=== PATIENT | male | born 1970 | race Caucasian/White ===

== ENCOUNTER 2019-03-06 13:27 | Observation (INO) ==
[2019-03-06 14:03] LABS: Basophils # 0.1 K/mcL (0.0-0.2); Basophils % 0.3 %; Hematocrit 50.4 % (37.5-50.1); Hemoglobin 16.7 g/dL (12.9-16.9); Immature Granulocytes % 0.9 % (0-4); Lymphocytes # 1.4 K/mcL (0.6-4.6); Lymphocytes % 7.2 %; Mean Corpuscular HGB Conc 33.1 g/dL (31.6-35.5); Mean Corpuscular Volume 93.5 fL (83.0-100.0); Mean Platelet Volume 9.4 fL (9.4-12.4); Monocytes # 0.6 K/mcL (0.0-1.3); Neutrophils # 16.9 K/mcL (1.6-8.9); Platelet Count 384 K/mcL (140-400); Red Blood Count 5.39 M/mcL (4.19-5.50); Red Cell Distribution Width 11.6 % (11.5-14.5); Segmented Neutrophils % 88.6 %
[2019-03-06 14:11] LABS: VBG HCO3 10 mEq/L (21-27); VBG PCO2 24 mmHg (41-51); VBG PH 7.22 pH Units (7.32-7.42); VBG PO2 88 mmHg (25-50)
[2019-03-06] MEDS: 0.9 % Sodium Chloride 1,000 ML IVC SCH ×2 (14:20→15:16)
[2019-03-06 14:39] LABS: Alanine Aminotransferase 29 Units/L (7-52); Albumin 4.6 g/dL (3.5-5.7); Albumin/Globulin Ratio 1.5 (1.1-2.2); Alkaline Phosphatase 124 Units/L (34-104); Aspartate Amino Transferase 17 Units/L (13-39); BUN/Creatinine Ratio 19 (6-26); Bilirubin,Direct 0.1 mg/dL (0.0-0.2); Bilirubin,Indirect 0.4 mg/dL (0.0-1.2); Bilirubin,Total 0.5 mg/dL (0.3-1.0); Blood Urea Nitrogen 23 mg/dL (6-20); Calcium 9.7 mg/dL (8.6-10.3); Carbon Dioxide 8 mEq/L (23-29); Chloride 99 mEq/L (98-107); Globulin 3.1 g/dL (2.4-3.5); Glucose 461 mg/dL (70-105); Lipase 6 Units/L (11-82); Magnesium 2.1 mg/dL (1.6-2.6); Osmolality,Calculated 308 (280-300); Potassium 4.4 mEq/L (3.5-5.1); Sodium 137 mEq/L (136-145); Total Protein 7.7 g/dL (6.4-8.9); Troponin I 0.03 ng/mL (< 0.04); eGFR For Non-African Americans > 60 (> 60)
[2019-03-06] MEDS ORDERED: *HR* Dextrose 50 % in Water (Syg) 50 ML SYRINGE IVP PRN (14:40)
[2019-03-06] MEDS ORDERED: Insulin Human Regular 100 UNIT in 0.9 % Sodium Chloride 100 ML IVC SCH (14:45)
--- NOTE | 2019-03-06 15:06 | Emergency Department Note ---
Disposition Clinical Impression: Tachycardia DKA (diabetic ketoacidoses) Qualifiers: Diabetes mellitus type: type 2 Diabetes mellitus complication detail: without coma Qualified Code(s): E11.10 - Type 2 diabetes mellitus with ketoacidosis with out coma Leukocytosis Qualifiers: Leukocytosis type: unspecified Qualified Code(s): D72.829 - Elevated white blood cell count, unspecified Disposition: Admitted As Inpatient Condition: Fair Referrals: Sierra Maguire [facility] [Primary Care Provider] - Forms: ED Satisfaction Letter General Adult HPI - General Chief complaint: ED Dizziness Stated complaint: ABD,Dizziness,Vomiting Time Seen by Provider: 03/06/19 13:35 Source: patient Mode of arrival: ambulatory Limitations: no limitations Nursing Notes Reviewed: Yes Vital Signs Reviewed: Yes - History of Present Illness HPI Narrative: 48-year-old male with significant past medical history of poorly controlled diabetes presenting to the emergency part chief complaint of generalized abdo seven pain, nausea and vomiting. According to the patient yesterday he was not feeling well. Went to sleep and woke up this morning and had several episodes of nonbloody nonbilious vomiting. Patient states the symptoms are the exact same as his previous episode of DKA. He states he believes his sugars have been controlled at home but at bedside states that he does not check frequently and often does not take his medicine. Patient denies any chest pain or shortness of breath. Denies any fevers or recent illnesses. Pain Scale: 9 - Related Data Home Medications Medication Instructions Recorded Confirmed Insulin ASPART [NovoLOG] 0 unit SQ TIDWM 08/29/15 03/06/19 Insulin Glargine,Hum.rec.anlog 30 unit SQ BID 08/29/15 03/06/19 [Lantus Solostar] Allergies Allergy/AdvReac Type Severity Reaction Status Date / Time No Known Allergies Allergy Verified 03/06/19 13:33 All systems ED: reviewed and negative except as stated. Constitutional: Denies: fever Eyes: Reports: as per HPI ENT ED: Reports: as per HPI Cardiovascular: Denies: chest pain Respiratory: Denies: dyspnea Gastrointestinal: Reports: abdominal pain, nausea, vomiting Genitourinary: Reports: as per HPI Musculoskeletal: Reports: as per HPI Integumentary: Reports: as per HPI Neurological: Reports: weakness Psychiatric: Reports: as per HPI Endocrine: Reports: as per HPI Hematological/Lymphatic: Reports: as per HPI Allergic/Immunologic: Reports: as per HPI Past Medical History - Past Medical History Attestation: Yes The following information was validated with the patient. Medical history: Reports: arthritis, diabetes Surgical history: Reports: no surgical history Psychiatric history: Reports: no psych history - Social History Smoking Status: Current every day smoker Smokeless Tobacco Status: No Alcohol use: Reports: occasionally Drug use: Reports: none Physical Exam - General Limitations: no limitations General appearance: alert, in no apparent distress - Head Head exam: atraumatic, normocephalic, normal inspection - Eye Eye exam: Absent: scleral icterus - ENT ENT exam: mucous membranes dry - Neck Neck exam: Present: full ROM - Chest Chest inspection: Present: symmetric chest wall rise - Respiratory Respiratory exam: Present: normal lung sounds bilaterally. Absent: respiratory distress, wheezes - Cardiovascular Cardiovascular exam: Present: normal rhythm, tachycardia, normal heart sounds - Abdominal Exam Abdominal exam: Present: soft, Non-Tender. Absent: distention, guarding, rebound - Extremities Exam Extremities exam: Present: full ROM - Neurological Exam Neurological exam: Present: alert, oriented X3 - Psychiatric Psychiatric exam: Present: normal affect - Skin Skin exam: Present: warm, diaphoresis Course Course Narrative: 48-year-old male presenting with generalized abdominal pain, nausea and vomiting. He states this feels exactly like his previous episode of DKA. Patient is poorly controlled diabetic. In the room is alert and oriented 3. Tachycardic but hemodynamically stable. He has dry mucous membranes on exam. His abdomen is soft, nondistended on exam. Concern for DKA at this time. We will obtain basic laboratory analysis, VBG, EKG, chest x-ray and provide the patient with 2 L of fluid. Disposition most likely admission the pending results. Patient agrees with this plan. - Reevaluation(s) Reevaluation #1: Patient's laboratory analysis shows a pH of 7.22 and a gap of 30. Positive blood in urine ketones. At this time we will provide the patient with an insulin drip and add maintenance fluids with 20 mEq of potassium. Agent remains alert and oriented 3 and hemodynamically stable. At this time will plan to admit the patient for further evaluation and treatment of DKA. Patient agrees with this plan. I spoke with the hospitalist on-call who agrees to accept the patient at this time. Vital Signs Temperature 98.1 F 03/06/19 13:33 Pulse Rate 113 03/06/19 13:33 Respiratory Rate 20 03/06/19 13:33 Blood Pressure 113/71 03/06/19 13:33 O2 Sat by Pulse Oximetry 99 03/06/19 13:33 Temperature 98.1 F 03/06/19 13:40 Pulse Rate 106 03/06/19 14:21 Respiratory Rate 20 03/06/19 14:21 Blood Pressure 159/87 03/06/19 14:21 O2 Sat by Pulse Oximetry 99 03/06/19 14:21 Oxygen Delivery Oxygen Delivery Room Air Medical Decision Making - Lab Data Result diagrams: 03/06/19 13:51 03/06/19 13:51 Lab Results 03/06/19 03/06/19 03/06/19 Range/Units 13:51 13:51 13:51 WBC 19.0 H (4.3-11.1) K/mcL RBC 5.39 (4.19-5.50) M/mcL Hgb 16.7 (12.9-16.9) g/dL Hct 50.4 H (37.5-50.1) % MCV 93.5 (83.0-100.0) fL MCH 31.0 (28.0-33.3) pg MCHC 33.1 (31.6-35.5) g/dL RDW 11.6 (11.5-14.5) % Plt Count 384 (140-400) K/mcL MPV 9.4 (9.4-12.4) fL Immature Gran % 0.9 (0-4) % Seg Neutrophils % 88.6 % Lymphocytes % 7.2 % Monocytes % 3.0 % Eosinophils % 0.0 % Basophils % 0.3 % Neutrophils # 16.9 H (1.6-8.9) K/mcL Lymphocytes # 1.4 (0.6-4.6) K/mcL Monocytes # 0.6 (0.0-1.3) K/mcL Eosinophils # 0.0 (0.0-0.6) K/mcL Basophils # 0.1 (0.0-0.2) K/mcL VBG pH (7.32-7.42) pH Units VBG pCO2 (41-51) mmHg VBG pO2 (25-50) mmHg VBG HCO3 (21-27) mEq/L Sodium 137 (136-145) mEq/L Potassium 4.4 (3.5-5.1) mEq/L Chloride 99 (98-107) mEq/L Carbon Dioxide 8 L* (23-29) mEq/L BUN 23 H (6-20) mg/dL Creatinine 1.18 (0.70-1.30) mg/dL Est GFR ( Amer) > 60 (> 60) Est GFR (Non-Af Amer) > 60 (> 60) BUN/Creatinine Ratio 19 (6-26) Glucose 461 H (70-105) mg/dL Calculated Osmolality 308 H (280-300) Calcium 9.7 (8.6-10.3) mg/dL Magnesium 2.1 (1.6-2.6) mg/dL Total Bilirubin 0.5 (0.3-1.0) mg/dL Direct Bilirubin 0.1 (0.0-0.2) mg/dL Indirect Bilirubin 0.4 (0.0-1.2) mg/dL AST 17 (13-39) Units/L ALT 29 (7-52) Units/L Alkaline Phosphatase 124 H (34-104) Units/L Troponin I 0.03 (< 0.04) ng/mL Serum Total Protein 7.7 (6.4-8.9) g/dL Albumin 4.6 (3.5-5.7) g/dL Globulin 3.1 (2.4-3.5) g/dL Albumin/Globulin Ratio 1.5 (1.1-2.2) Lipase 6 L (11-82) Units/L Beta-Hydroxybutyric Acd > 2.00 H (0.02-0.27) mmol/L 03/06/19 Range/Units 14:08 WBC (4.3-11.1) K/mcL RBC (4.19-5.50) M/mcL Hgb (12.9-16.9) g/dL Hct (37.5-50.1) % MCV (83.0-100.0) fL MCH (28.0-33.3) pg MCHC (31.6-35.5) g/dL RDW (11.5-14.5) % Plt Count (140-400) K/mcL MPV (9.4-12.4) fL Immature Gran % (0-4) % Seg Neutrophils % % Lymphocytes % % Monocytes % % Eosinophils % % Basophils % % Neutrophils # (1.6-8.9) K/mcL Lymphocytes # (0.6-4.6) K/mcL Monocytes # (0.0-1.3) K/mcL Eosinophils # (0.0-0.6) K/mcL Basophils # (0.0-0.2) K/mcL VBG pH 7.22 L (7.32-7.42) pH Units VBG pCO2 24 L (41-51) mmHg VBG pO2 88 H (25-50) mmHg VBG HCO3 10 L (21-27) mEq/L Sodium (136-145) mEq/L Potassium (3.5-5.1) mEq/L Chloride (98-107) mEq/L Carbon Dioxide (23-29) mEq/L BUN (6-20) mg/dL Creatinine (0.70-1.30) mg/dL Est GFR ( Amer) (> 60) Est GFR (Non-Af Amer) (> 60) BUN/Creatinine Ratio (6-26) Glucose (70-105) mg/dL Calculated Osmolality (280-300) Calcium (8.6-10.3) mg/dL Magnesium (1.6-2.6) mg/dL Total Bilirubin (0.3-1.0) mg/dL Direct Bilirubin (0.0-0.2) mg/dL Indirect Bilirubin (0.0-1.2) mg/dL AST (13-39) Units/L ALT (7-52) Units/L Alkaline Phosphatase (34-104) Units/L Troponin I (< 0.04) ng/mL Serum Total Protein (6.4-8.9) g/dL Albumin (3.5-5.7) g/dL Globulin (2.4-3.5) g/dL Albumin/Globulin Ratio (1.1-2.2) Lipase (11-82) Units/L Beta-Hydroxybutyric Acd (0.02-0.27) mmol/L - EKG Data EKG #1 EKG attestation: Yes I reviewed and interpreted this EKG. EKG results narrative: Sinus tachycardia. 109 beats for minute. OR interval 170, QRS 83, QTC 493. No sign of acute ST segment elevation or ischemia. Compared to previous EKG completed on 08/29/2015 no significant changes noted
[2019-03-06] MEDS: 0.45 % Sodium Chloride w/KCl 20 MEQ/1,000 ML MLS IVC SCH ×5 (15:22→23:56)
[2019-03-06] MEDS ORDERED: 0.9 % Sodium Chloride 1,000 ML IVC ONE (15:25)
--- NOTE | 2019-03-06 15:31 | Emergency Department Note ---
Disposition Clinical Impression: Tachycardia DKA (diabetic ketoacidoses) Qualifiers: Diabetes mellitus type: type 2 Diabetes mellitus complication detail: without coma Qualified Code(s): E11.10 - Type 2 diabetes mellitus with ketoacidosis with out coma Leukocytosis Qualifiers: Leukocytosis type: unspecified Qualified Code(s): D72.829 - Elevated white blood cell count, unspecified Disposition: Admitted As Inpatient Condition: Fair Referrals: Sierra Maguire FSR [Primary Care Provider] - Forms: ED Satisfaction Letter General Adult HPI - General Chief complaint: ED Dizziness Stated complaint: ABD,Dizziness,Vomiting Time Seen by Provider: 03/06/19 13:35 Source: patient Mode of arrival: ambulatory Limitations: no limitations - History of Present Illness Pain Scale: 9 - Related Data Home Medications Medication Instructions Recorded Confirmed Insulin ASPART [NovoLOG] 0 unit SQ TIDWM 08/29/15 03/06/19 Insulin Glargine,Hum.rec.anlog 30 unit SQ BID 08/29/15 03/06/19 [Lantus Solostar] Allergies Allergy/AdvReac Type Severity Reaction Status Date / Time No Known Allergies Allergy Verified 03/06/19 13:33 Constitutional: Denies: fever Eyes: Reports: as per HPI ENT ED: Reports: as per HPI Cardiovascular: Denies: chest pain Respiratory: Denies: dyspnea Gastrointestinal: Reports: abdominal pain, nausea, vomiting Genitourinary: Reports: as per HPI Musculoskeletal: Reports: as per HPI Integumentary: Reports: as per HPI Neurological: Reports: weakness Psychiatric: Reports: as per HPI Endocrine: Reports: as per HPI Hematological/Lymphatic: Reports: as per HPI Allergic/Immunologic: Reports: as per HPI Past Medical History - Past Medical History Medical history: Reports: arthritis, diabetes Surgical history: Reports: no surgical history Psychiatric history: Reports: no psych history - Social History Smoking Status: Current every day smoker Smokeless Tobacco Status: No Alcohol use: Reports: occasionally Drug use: Reports: none Physical Exam - General Limitations: no limitations General appearance: alert, in no apparent distress Course Vital Signs Temperature 98.1 F 03/06/19 13:33 Pulse Rate 113 03/06/19 13:33 Respiratory Rate 20 03/06/19 13:33 Blood Pressure 113/71 03/06/19 13:33 O2 Sat by Pulse Oximetry 99 03/06/19 13:33 Temperature 98.1 F 03/06/19 13:40 Pulse Rate 106 03/06/19 14:21 Respiratory Rate 20 03/06/19 14:21 Blood Pressure 159/87 03/06/19 14:21 O2 Sat by Pulse Oximetry 99 03/06/19 14:21 Oxygen Delivery Oxygen Delivery Room Air Medical Decision Making - Lab Data Result diagrams: 03/06/19 13:51 03/06/19 13:51 Lab Results 03/06/19 03/06/19 03/06/19 Range/Units 13:51 13:51 13:51 WBC 19.0 H (4.3-11.1) K/mcL RBC 5.39 (4.19-5.50) M/mcL Hgb 16.7 (12.9-16.9) g/dL Hct 50.4 H (37.5-50.1) % MCV 93.5 (83.0-100.0) fL MCH 31.0 (28.0-33.3) pg MCHC 33.1 (31.6-35.5) g/dL RDW 11.6 (11.5-14.5) % Plt Count 384 (140-400) K/mcL MPV 9.4 (9.4-12.4) fL Immature Gran % 0.9 (0-4) % Seg Neutrophils % 88.6 % Lymphocytes % 7.2 % Monocytes % 3.0 % Eosinophils % 0.0 % Basophils % 0.3 % Neutrophils # 16.9 H (1.6-8.9) K/mcL Lymphocytes # 1.4 (0.6-4.6) K/mcL Monocytes # 0.6 (0.0-1.3) K/mcL Eosinophils # 0.0 (0.0-0.6) K/mcL Basophils # 0.1 (0.0-0.2) K/mcL VBG pH (7.32-7.42) pH Units VBG pCO2 (41-51) mmHg VBG pO2 (25-50) mmHg VBG HCO3 (21-27) mEq/L Sodium 137 (136-145) mEq/L Potassium 4.4 (3.5-5.1) mEq/L Chloride 99 (98-107) mEq/L Carbon Dioxide 8 L* (23-29) mEq/L BUN 23 H (6-20) mg/dL Creatinine 1.18 (0.70-1.30) mg/dL Est GFR ( Amer) > 60 (> 60) Est GFR (Non-Af Amer) > 60 (> 60) BUN/Creatinine Ratio 19 (6-26) Glucose 461 H (70-105) mg/dL Calculated Osmolality 308 H (280-300) Lactic Acid (0.5-2.2) mmol/L Calcium 9.7 (8.6-10.3) mg/dL Magnesium 2.1 (1.6-2.6) mg/dL Total Bilirubin 0.5 (0.3-1.0) mg/dL Direct Bilirubin 0.1 (0.0-0.2) mg/dL Indirect Bilirubin 0.4 (0.0-1.2) mg/dL AST 17 (13-39) Units/L ALT 29 (7-52) Units/L Alkaline Phosphatase 124 H (34-104) Units/L Troponin I 0.03 (< 0.04) ng/mL Serum Total Protein 7.7 (6.4-8.9) g/dL Albumin 4.6 (3.5-5.7) g/dL Globulin 3.1 (2.4-3.5) g/dL Albumin/Globulin Ratio 1.5 (1.1-2.2) Lipase 6 L (11-82) Units/L Beta-Hydroxybutyric Acd > 2.00 H (0.02-0.27) mmol/L 03/06/19 03/06/19 Range/Units 14:08 14:37 WBC (4.3-11.1) K/mcL RBC (4.19-5.50) M/mcL Hgb (12.9-16.9) g/dL Hct (37.5-50.1) % MCV (83.0-100.0) fL MCH (28.0-33.3) pg MCHC (31.6-35.5) g/dL RDW (11.5-14.5) % Plt Count (140-400) K/mcL MPV (9.4-12.4) fL Immature Gran % (0-4) % Seg Neutrophils % % Lymphocytes % % Monocytes % % Eosinophils % % Basophils % % Neutrophils # (1.6-8.9) K/mcL Lymphocytes # (0.6-4.6) K/mcL Monocytes # (0.0-1.3) K/mcL Eosinophils # (0.0-0.6) K/mcL Basophils # (0.0-0.2) K/mcL VBG pH 7.22 L (7.32-7.42) pH Units VBG pCO2 24 L (41-51) mmHg VBG pO2 88 H (25-50) mmHg VBG HCO3 10 L (21-27) mEq/L Sodium (136-145) mEq/L Potassium (3.5-5.1) mEq/L Chloride (98-107) mEq/L Carbon Dioxide (23-29) mEq/L BUN (6-20) mg/dL Creatinine (0.70-1.30) mg/dL Est GFR ( Amer) (> 60) Est GFR (Non-Af Amer) (> 60) BUN/Creatinine Ratio (6-26) Glucose (70-105) mg/dL Calculated Osmolality (280-300) Lactic Acid 2.2 (0.5-2.2) mmol/L Calcium (8.6-10.3) mg/dL Magnesium (1.6-2.6) mg/dL Total Bilirubin (0.3-1.0) mg/dL Direct Bilirubin (0.0-0.2) mg/dL Indirect Bilirubin (0.0-1.2) mg/dL AST (13-39) Units/L ALT (7-52) Units/L Alkaline Phosphatase (34-104) Units/L Troponin I (< 0.04) ng/mL Serum Total Protein (6.4-8.9) g/dL Albumin (3.5-5.7) g/dL Globulin (2.4-3.5) g/dL Albumin/Globulin Ratio (1.1-2.2) Lipase (11-82) Units/L Beta-Hydroxybutyric Acd (0.02-0.27) mmol/L Attestation Statement - Attestation Attestation: I examined this patient and my medical decision-making was reviewed with the Resident Physician. I agree with the documented findings, disposition and treatment plan as described except to the extent set forth below. 48 year old male presents with complaints of abdominal pain and vomitting and is otherwise a noncompliant diabetic patient and has been in DKA in the past. It appears he is in DKA again and torres start IVF, insulin and potassium therapy with admission to ICU
[2019-03-06] MEDS ORDERED: cefTRIAXone 1,000 MG in Water for inj. (sterile) 20 ML 10 ML IVP SCH (16:00)
[2019-03-06 16:27] LABS: Estimated Average Glucose 361 mg/dl; Hemoglobin A1C 14.2 %
[2019-03-06 16:33] LABS: BUN/Creatinine Ratio 21 (6-26); Blood Urea Nitrogen 22 mg/dL (6-20); Calcium 9.2 mg/dL (8.6-10.3); Carbon Dioxide 11 mEq/L (23-29); Chloride 107 mEq/L (98-107); Glucose 407 mg/dL (70-105); Osmolality,Calculated 302 (280-300); Potassium 4.4 mEq/L (3.5-5.1); Sodium 136 mEq/L (136-145); eGFR For Non-African Americans > 60 (> 60)
[2019-03-06 16:35] LABS: eGFR For Non-African Americans > 60 (> 60)
--- NOTE | 2019-03-06 16:48 | Internal Med History&Physical ---
Date of Encounter: 03/06/19 Time of Encounter: 16:42 Internal Medicine - H&P: HPI Chief complaint: abdominal pain, Nausea and vomiting Plans for Post Hospital Care: Home History of present illness: Mr. Barroso is a 48 year old male PMH of diabetes and medication non-compliance. Patient presented to the ED due to generalized abdominal pain, nausea and vomiting of 1 day duration. Patient reports not beiing compliant with his insulin regime for the past 2 days, reports that he has been skipping dosages and not using his slinding scale insulin for the past 2 days. Stated that yesterday he started having non-radiating generalized 8/10, aching abdominal pain, associated with nausea and 7-8 non-bilious, non-bloody vomiting episodes. He also reports having 4 loose BM yesterday. denies recent use of antibiotics. reports subjective fever yesterday. denies productive cough or urinary symptoms. Reports drinking 3-4 beers and day and smoking 1 ppd for the past 30 years. denies recreational drug use. Patient in the ED was found to be in dka, h ospitalist team called for management. Past Med Surg Social Fam HX - Past Medical History Medical history: arthritis, diabetes Additional medical history: see attached records Psychiatric history: no psych history - Past Surgical History Surgical History: no surgical history - Social History Smoking Status: Current every day smoker Smokeless Tobacco Status: No Alcohol use: occasionally Drug use: none - Family History Mother Adopted: No Family Member Ethnicity: Non- Living Status: Still Living Hx Family Cardiac Disorders: Yes Hx Family Respiratory Disorders: No Hx Family Cancer: No Hx Family GI Disorders: No Hx Family Endocrine Disorder: Yes Hx Family Neuromuscular Disorders: No Hx Family Neurologic Disorders: No Hx Family HEENT Disorders: No Hx Family Autoimmune Disorders: No Grandmother Hx Family Endocrine Disorder: Yes (Diabetes mellitus) Internal Medicine - H&P: Meds Insulin ASPART [NovoLOG] 0 unit SQ TIDWM 08/29/15 [History] Insulin Glargine,Hum.rec.anlog [Lantus Solostar] 30 unit SQ BID 08/29/15 [ History] Allergy/AdvReac Type Severity Reaction Status Date / Time No Known Allergies Allergy Verified 03/06/19 13:33 All Systems PM: A 10-system review of systems was performed and is negative for pertinent findings except as documented above in the HPI. - Constitutional Constitutional: fever(s) (subjective. ), no chills, no weakness - EENT Eyes: no blurry vision, no irritation, no pain Nose, mouth and throat: no dry mouth, no sinus pain, no throat swelling - Cardiovascular Cardiovascular ROS IM: no chest pain, no dyspnea, no dyspnea on exertion, no lightheadedness, no orthopnea, no palpitations - Respiratory Respiratory: no cough, no pain with cough - Gastrointestinal Gastrointestinal: abdominal pain, loose stools, nausea, vomiting, no cramping, no hematemesis, no hematochezia - Genitourinary Genitourinary ROS male: no difficulty urinating, no dysuria, no nocturia, no urinary frequency, no urinary hesitancy, no urinary urgency - Musculoskeletal Musculoskeletal ROS IM: no arthralgias, no myalgias, no numbness - Integumentary Integumentary IM: no erythema, no rash - Neurological Neurological ROS: no headache(s), no tingling, no weakness - Psychiatric Psychiatric: no anxiety, no hopelessness, no irritability - Endocrine Endocrine IM: no cold intolerance, no polydipsia, no polyphagia, no polyuria - Hematologic/Lymphatic Hematologic/Lymphatic: no easy bruising, no lymphadenopathy - Allergic/Immunologic Allergic/Immunologic: no GI upset with certain foods - Constitutional Vitals: Temp Pulse Resp BP Pulse Ox 98.1 F 107 18 176/93 99 03/06/19 13:40 03/06/19 16:18 03/06/19 16:18 03/06/19 16:18 03/06/19 16:18 Exam: Vitals: Reviewed General: Alert and oriented x4. In mild distress due to abdominal pain, nausea and vomiting Skin: Normal color, no rash, no lesions. HEENT: dry mucus membrane, EOM, pupils equal, round and reactive. Cardiovascular: RRR, normal S1 & S2, no rubs, murmurs or gallops. Lungs: CTA, no wheezes or crackles. Abdomen: Soft, non-tender, no rigidity. Extremities: No deformity, no edema or tenderness, no joint swelling or clubbing. Neurological: Normal cognition and motor skills. Rest of the physical exam is non contributory Internal Med - H&P Results - Labs CBC & Chem 7: 03/06/19 13:51 03/06/19 15:45 Labs: Short CBC 03/06/19 Range/Units 13:51 WBC 19.0 H (4.3-11.1) K/mcL Hgb 16.7 (12.9-16.9) g/dL Hct 50.4 H (37.5-50.1) % Plt Count 384 (140-400) K/mcL Neutrophils # 16.9 H (1.6-8.9) K/mcL BMP 03/06/19 03/06/19 13:51 15:45 Sodium 137 136 Potassium 4.4 4.4 Chloride 99 107 Carbon Dioxide 8 L* 11 L BUN 23 H 22 H Creatinine 1.18 1.05 Glucose 461 H 407 H Calcium 9.7 9.2 Cardiac Enzymes 03/06/19 03/06/19 Range/Units 13:51 15:45 Troponin I 0.03 < 0.03 (< 0.04) ng/mL Liver Function 03/06/19 Range/Units 13:51 Total Bilirubin 0.5 (0.3-1.0) mg/dL Direct Bilirubin 0.1 (0.0-0.2) mg/dL AST 17 (13-39) Units/L ALT 29 (7-52) Units/L Alkaline Phosphatase 124 H (34-104) Units/L Albumin 4.6 (3.5-5.7) g/dL - ABG Interpretation ABG results: 03/06/19 14:08 VBG pH 7.22 L VBG pCO2 24 L VBG pO2 88 H VBG HCO3 10 L - Impressions ITS Impressions Chest X-Ray 03/06/19 13:53 IMPRESSION: No acute cardiopulmonary disease. D/ / Eric Guillermo MD / Eric Guillermo MD Interpreting Provider: Eric Guillermo MD - Diagnostic Studies Chest x-ray Status: image reviewed by me (No abdonormalities. ) - Assessment and Plan (1) DKA (diabetic ketoacidoses) Current Visit: Yes Status: Acute Assessment and plan: patient reports being not compliant with his medications. 1 day hx of nausea, vomiting and abdominal pain. Plan started DKA protocol BMP Q4HRs, accu-checks Q1HRs NPO insulin drip titrate per protocol IV fluids bolus. patient has received 3 litters of fluids total continue 0.45% with 20 meq of K @125ml/hr change fluids to D5/0.45%NS when blood sugar <250 lactic acid patient started empirically on ceftriaxone 1gm/IV daily serial trops PPIs and anti-emetics lipase. Qualifiers: Diabetes mellitus type: type 2 Diabetes mellitus complication detail: without coma Qualified Code(s): E11.10 - Type 2 diabetes mellitus with ketoacidosis without coma (2) Nausea and vomiting Current Visit: Yes Status: Acute Assessment and plan: plan of care as per #1 Qualifiers: Vomiting type: unspecified Vomiting Intractability: intractable Qualified Code(s): R11.2 - Nausea with vomiting, unspecified (3) Abdominal pain Current Visit: Yes Status: Acute Assessment and plan: plan of care as per #1 Qualifiers: Abdominal location: generalized Qualified Code(s): R10.84 - Generalized abdominal pain (4) Leukocytosis Current Visit: Yes Status: Acute Assessment and plan: likely reactive. due to nausea and vomiting. Qualifiers: Leukocytosis type: unspecified Qualified Code(s): D72.829 - Elevated white blood cell count, unspecified (5) DVT prophylaxis Current Visit: Yes Status: Acute Assessment and plan: started on heparin subq. - Time Spent With Patient Total time spent is greater than 50% in coordination of care (as documented) at patient's floor/unit and/or counseling patient: Greater than 35 minutes (45)
[2019-03-06] MEDS: Ondansetron 4 MG/2 ML VIAL IVP PRN ×2 (17:12→23:32)
[2019-03-06] MEDS: D5% in 0.45% NACL w KCl 20 MEQ/1,000 ML MLS IVC PRN ×2 (19:45→23:30)
[2019-03-06] MEDS: Pantoprazole 40 MG VIAL IVP SCH (20:50)
[2019-03-06 21:04] LABS: BUN/Creatinine Ratio 23 (6-26); Blood Urea Nitrogen 19 mg/dL (6-20); Calcium 8.4 mg/dL (8.6-10.3); Carbon Dioxide 13 mEq/L (23-29); Chloride 110 mEq/L (98-107); Glucose 229 mg/dL (70-105); Osmolality,Calculated 294 (280-300); Potassium 4.3 mEq/L (3.5-5.1); Sodium 137 mEq/L (136-145)
[2019-03-06] MEDS: *HR* Heparin 5,000 UNIT/ML VIAL SQ SCH (23:30)
[2019-03-07] MEDS: 0.45 % Sodium Chloride w/KCl 20 MEQ/1,000 ML MLS IVC SCH (01:44)
[2019-03-07 01:52] LABS: BUN/Creatinine Ratio 26 (6-26); Blood Urea Nitrogen 18 mg/dL (6-20); Carbon Dioxide 19 mEq/L (23-29); Chloride 110 mEq/L (98-107); Glucose 189 mg/dL (70-105); Osmolality,Calculated 291 (280-300); Potassium 3.8 mEq/L (3.5-5.1); Sodium 137 mEq/L (136-145); eGFR For Non-African Americans > 60 (> 60)
[2019-03-07] MEDS ORDERED: D5% in Water 1,000 ML IVC PRN (02:24)
[2019-03-07] MEDS ORDERED: Dextrose Gel 15 GM/37.5 ML TUBE PO PRN ×2 (02:24)
[2019-03-07] MEDS ORDERED: *HR* Dextrose 50 % in Water (Syg) 50 ML SYRINGE IVP PRN (02:24)
[2019-03-07] MEDS ORDERED: Insulin DETEMIR 100 UNIT/ML X5UNITS SQ ONE (02:27)
[2019-03-07] MEDS: *HR* Heparin 5,000 UNIT/ML VIAL SQ SCH (06:38)
[2019-03-07] MEDS: Insulin LISPRO 300 UNITS/3 ML VIAL SQ SCH ×2 (07:45→11:49)
[2019-03-07 08:01] LABS: BUN/Creatinine Ratio 25 (6-26); Blood Urea Nitrogen 15 mg/dL (6-20); Calcium 8.9 mg/dL (8.6-10.3); Carbon Dioxide 21 mEq/L (23-29); Chloride 109 mEq/L (98-107); Glucose 110 mg/dL (70-105); Osmolality,Calculated 283 (280-300); Potassium 3.5 mEq/L (3.5-5.1); Sodium 136 mEq/L (136-145); eGFR For Non-African Americans > 60 (> 60)
[2019-03-07] MEDS: Pantoprazole 40 MG VIAL IVP SCH (08:14)
[2019-03-07 10:32] LABS: Hematocrit 39.9 % (37.5-50.1); Mean Corpuscular HGB Conc 33.8 g/dL (31.6-35.5); Mean Corpuscular Hemoglobin 30.4 pg (28.0-33.3); Mean Corpuscular Volume 89.9 fL (83.0-100.0); Mean Platelet Volume 9.2 fL (9.4-12.4); Platelet Count 284 K/mcL (140-400); Red Blood Count 4.44 M/mcL (4.19-5.50); Red Cell Distribution Width 11.5 % (11.5-14.5)
[2019-03-07 10:35] LABS: Hemoglobin 13.5 g/dL (12.9-16.9)
[2019-03-07 11:03] VITALS: BP 151/77
--- NOTE | 2019-03-07 11:03 | Discharge Summary ---
- NOTES TO OUTPATIENT PROVIDER Notes to Outpatient Provider: CBC in 5 days Date of Encounter: 03/07/19 Time of Encounter: 07:30 - Discharge Diagnosis (1) DKA (diabetic ketoacidoses) Priority: Primary Status: Acute Qualifiers: Diabetes mellitus type: type 2 Diabetes mellitus complication detail: without coma Qualified Code(s): E11.10 - Type 2 diabetes mellitus with ketoacidosis without coma (2) Leukocytosis Priority: Secondary Status: Acute Qualifiers: Leukocytosis type: unspecified Qualified Code(s): D72.829 - Elevated white blood cell count, unspecified (3) Nausea and vomiting Priority: Secondary Status: Acute Qualifiers: Vomiting type: unspecified Vomiting Intractability: intractable Qualified Code(s): R11.2 - Nausea with vomiting, unspecified (4) Abdominal pain Priority: Secondary Status: Acute Qualifiers: Abdominal location: generalized Qualified Code(s): R10.84 - Generalized abdominal pain (5) DVT prophylaxis Priority: Secondary Status: Acute Hospital course: Mr. Barroso is a 48 year old male with history of type 2 diabetes was admitted for mild DKA in the setting of noncompliance. Clinically improved with IV insulin, IV fluid with closure of anion gap. He was noted to have leukocytosis without any foci of infection and was advised to follow-up with repeat CBC in 5 days. He stated that he had all the insulin supplies at home hence the script was not provided. Discharge discussed with: patient, nurse - Time Spent with Patient Total time spent providing and/or coordinating discharge services: 28 mins - Discharge Medications Prescriptions: Continued Insulin ASPART [NovoLOG] 0 unit SQ TIDWM Insulin Glargine,Hum.rec.anlog [Lantus Solostar] 30 unit SQ BID Home Medications: Insulin ASPART [NovoLOG] 0 unit SQ TIDWM 08/29/15 [History] Insulin Glargine,Hum.rec.anlog [Lantus Solostar] 30 unit SQ BID 08/29/15 [History] Allergies/Adverse Reactions: Allergy/AdvReac Type Severity Reaction Status Date / Time No Known Allergies Allergy Verified 03/06/19 13:33 Date of admission: 03/06/19 18:14 Primary care physician: Sierra Maguire CNP - Constitutional Vitals: Temp Pulse Resp BP Pulse Ox 98.3 F 94 18 162/89 97 03/07/19 07:22 03/07/19 07:22 03/07/19 07:22 03/07/19 07:22 03/07/19 08:14 Exam: Vitals: Reviewed General: Alert and oriented x4. not in distress Cardiovascular: RRR, normal S1 & S2, no rubs, murmurs or gallops. Lungs: CTA, no wheezes or crackles. Abdomen: Soft, non-tender, no rigidity. Extremities: No deformity, no edema or tenderness, no joint swelling or clubbing. Neurological: Normal cognition and motor skills. - Patient Status Disposition: Home, Self-Care Condition: Fair Functional capacity at discharge: independent ambulation Overall status at discharge: patient is progressing back to baseline - Discharge Instructions Instructions: Diabetes Mellitus Type 2 in Adults (DC) Follow Up With: Sierra Maguire ACCOUNTANT BOOKKEEPER [Primary Care Provider] - Additional Instructions: Repeat CBC in 5 days to see the trend of WBC - Diet and Activity Activity: resume usual activities as tolerated Diet: diabetic diet
[2019-03-07] MEDS ORDERED: Insulin LISPRO 300 UNITS/3 ML VIAL SQ SCH (21:00)
--- NOTE | 2019-03-08 16:23 | Electrocardiograph Report ---
[place] [id number] Test Date: 2019-03-06 Pat Name: Sarbjit Barroso Department: EXAM2 Room: 2N03 Gender: M Web Content Developer: : 1970 Requested By: Virginia Will Order Number: [id number] Reading MD: Suman Brown Measurements Intervals [place] Rate: 109 P: 66 [place]: 170 QRS: 77 QRSD: 83 T: 42 QT: 366 QTc: 493 Interpretive Statements Sinus tachycardia Probable left atrial enlargement Probable anteroseptal infarct, old Electronically Signed On 03-08-2019 16:21:07 EDT by Suman Brown
== END 2019-03-07 15:38 | disposition home or self-care (01) ==
LOC: EMEROOARM 13:27 → SUATTDRO 18:14 → INTOOBSV 18:14 → 2NNU 18:14
PROVIDERS: ADMIT Student in an Organized Health Care Education/Training Program; ATTEND Internal Medicine

== ENCOUNTER 2019-12-03 10:27 | Inpatient (IN) ==
[2019-12-03] MEDS ORDERED: 0.9 % Sodium Chloride 1,000 ML IVC ONE ×2 (10:52→12:51)
[2019-12-03] MEDS ORDERED: Ondansetron 4 MG/2 ML VIAL IVP ONE (10:52)
[2019-12-03 11:15] LABS: Hemoglobin 15.4 g/dL (12.9-16.9); Mean Corpuscular HGB Conc 32.8 g/dL (31.6-35.5); Mean Corpuscular Hemoglobin 30.7 pg (28.0-33.3); Mean Corpuscular Volume 93.6 fL (83.0-100.0); Monocytes % 7.5 %; Platelet Count 354 K/mcL (140-400); Red Blood Count 5.02 M/mcL (4.19-5.50); Segmented Neutrophils % 86.3 %
[2019-12-03 11:16] LABS: Basophils % 0.2 %; Lymphocytes # 0.7 K/mcL (0.6-4.6); Monocytes # 1.1 K/mcL (0.0-1.3); Neutrophils # 12.1 K/mcL (1.6-8.9)
[2019-12-03 11:22] LABS: VBG HCO3 8 mEq/L (21-27); VBG PCO2 27 mmHg (41-51); VBG PH 7.11 pH Units (7.32-7.42); VBG PO2 75 mmHg (25-50)
[2019-12-03] MEDS ORDERED: *HR* Dextrose 50 % in Water (Syg) 50 ML SYRINGE IVP PRN (11:30)
[2019-12-03] MEDS ORDERED: Insulin Human Regular 100 UNIT in 0.9 % Sodium Chloride 100 ML IVC SCH (11:30)
[2019-12-03 12:30] LABS: Bilirubin,Urine Negative (Negative); Blood,Urine Negative (Negative); Clarity,Urine Clear (Clear); Color,Urine Yellow (Yellow); Glucose,Urine (UA) >=1000 mg/dL (Normal); Ketones,Urine 80 mg/dL (Negative); Leukocyte Esterase,Urine Negative (Negative); Nitrite,Urine Negative (Negative); PH,Urine 5.5 pH Units (5.0-8.0); Protein,Urine 30 mg/dL (Neg-Trace); Specific Gravity,Urine 1.028 (1.010-1.025); Urobilinogen,Urine Normal (Normal)
[2019-12-03 12:31] LABS: Calcium 8.8 mg/dL (8.6-10.3); Potassium 5.1 mEq/L (3.5-5.1)
[2019-12-03 12:32] LABS: Bacteria,Urine None Seen per hpf (None-Few); Hyaline Casts,Urine None Seen per lpf (None-Few); Squamous Epithelial Cell,Urine Few per lpf (None-Few); WBC,Urine 0-3 per hpf (0-3)
[2019-12-03] MEDS ORDERED: 0.45 % Sodium Chloride w/KCl 20 MEQ/1,000 ML MLS IVC SCH ×2 (12:45→15:12)
[2019-12-03] MEDS ORDERED: D5% in 0.45% NACL w KCl 20 MEQ/1,000 ML MLS IVC PRN (13:51)
[2019-12-03] MEDS ORDERED: Naloxone 0.4 MG/ML INJ IVP PRN (13:51)
[2019-12-03] MEDS ORDERED: D5% in 0.45% NACL 1,000 ML IVC PRN (13:51)
[2019-12-03] MEDS: Insulin Human Regular 100 UNIT in 0.9 % Sodium Chloride 100 ML IVC SCH (16:07)
[2019-12-03 16:48] LABS: Adenovirus Not Detected (Not Detect); Coronavirus 229E Not Detected (Not Detect); Coronavirus HKU1 Not Detected (Not Detect); Coronavirus NL63 Not Detected (Not Detect); Coronavirus OC43 Not Detected (Not Detect); Human Metapneumovirus Not Detected (Not Detect); Human Rhinovirus/Enterovirus Not Detected (Not Detect)
[2019-12-03 16:50] LABS: Influenza A Subtype 2009 H1 DETECTED (Not Detect)
[2019-12-03 16:51] LABS: Bordetella Pertussis Not Detected (Not Detect); Chlamydophila pneumoniae Not Detected (Not Detect); Influenza B Not Detected (Not Detect); Mycoplasma pneumoniae Not Detected (Not Detect); Parainfluenza Virus 1 Not Detected (Not Detect); Parainfluenza Virus 2 Not Detected (Not Detect); Parainfluenza Virus 3 Not Detected (Not Detect); Parainfluenza Virus 4 Not Detected (Not Detect); Respiratory Syncytial Virus Not Detected (Not Detect)
[2019-12-03 17:11] LABS: VBG HCO3 16 mEq/L (21-27); VBG PCO2 43 mmHg (41-51); VBG PH 7.19 pH Units (7.32-7.42); VBG PO2 41 mmHg (25-50)
[2019-12-03] MEDS: Ondansetron 4 MG/2 ML VIAL IVP PRN (17:21)
[2019-12-03 18:21] LABS: BUN/Creatinine Ratio 33 (6-26); Blood Urea Nitrogen 40 mg/dL (6-20); Calcium 8.6 mg/dL (8.6-10.3); Carbon Dioxide 15 mEq/L (23-29); Chloride 104 mEq/L (98-107); Glucose 350 mg/dL (70-105); Osmolality,Calculated 308 (280-300); Potassium 4.3 mEq/L (3.5-5.1); Sodium 137 mEq/L (136-145); eGFR For African Americans > 60 (> 60); eGFR For Non-African Americans > 60 (> 60)
[2019-12-03] MEDS ORDERED: Pantoprazole 40 MG VIAL IVP ONE (20:57)
[2019-12-03 23:08] LABS: VBG PH 7.32 pH Units (7.32-7.42)
[2019-12-03 23:19] LABS: BUN/Creatinine Ratio 36 (6-26); Blood Urea Nitrogen 31 mg/dL (6-20); Calcium 8.3 mg/dL (8.6-10.3); Carbon Dioxide 20 mEq/L (23-29); Chloride 109 mEq/L (98-107); Glucose 200 mg/dL (70-105); Osmolality,Calculated 296 (280-300); Potassium 3.9 mEq/L (3.5-5.1); Sodium 137 mEq/L (136-145); eGFR For African Americans > 60 (> 60); eGFR For Non-African Americans > 60 (> 60)
[2019-12-04 02:10] LABS: Hematocrit 40.1 % (37.5-50.1); Hemoglobin 13.7 g/dL (12.9-16.9); Immature Platelets 1.7 % (1.1-6.1); Mean Corpuscular HGB Conc 34.2 g/dL (31.6-35.5); Mean Corpuscular Hemoglobin 30.8 pg (28.0-33.3); Mean Corpuscular Volume 90.1 fL (83.0-100.0); Mean Platelet Volume 9.3 fL (9.4-12.4); Red Blood Count 4.45 M/mcL (4.19-5.50); White Blood Count 11.7 K/mcL (4.3-11.1)
[2019-12-04 02:25] LABS: BUN/Creatinine Ratio 36 (6-26); Blood Urea Nitrogen 26 mg/dL (6-20); Carbon Dioxide 16 mEq/L (23-29); Chloride 113 mEq/L (98-107); Glucose 112 mg/dL (70-105); Osmolality,Calculated 290 (280-300); Potassium 3.7 mEq/L (3.5-5.1); Sodium 137 mEq/L (136-145); eGFR For African Americans > 60 (> 60); eGFR For Non-African Americans > 60 (> 60)
[2019-12-04] MEDS: Insulin Human Regular 100 UNIT in 0.9 % Sodium Chloride 100 ML IVC SCH (04:03)
[2019-12-04 07:01] LABS: BUN/Creatinine Ratio 30 (6-26); Blood Urea Nitrogen 21 mg/dL (6-20); Calcium 8.2 mg/dL (8.6-10.3); Carbon Dioxide 18 mEq/L (23-29); Chloride 110 mEq/L (98-107); Glucose 156 mg/dL (70-105); Osmolality,Calculated 292 (280-300); Potassium 3.7 mEq/L (3.5-5.1); Sodium 138 mEq/L (136-145); eGFR For African Americans > 60 (> 60); eGFR For Non-African Americans > 60 (> 60)
[2019-12-04] MEDS ORDERED: Insulin DETEMIR 100 UNIT/ML X5UNITS SQ ONE (08:00)
[2019-12-04] MEDS ORDERED: D5% in Water 1,000 ML IVC PRN (08:01)
[2019-12-04] MEDS ORDERED: *HR* Dextrose 50 % in Water (Syg) 50 ML SYRINGE IVP PRN (08:01)
[2019-12-04] MEDS ORDERED: Dextrose Gel 15 GM/37.5 ML TUBE PO PRN ×2 (08:01)
[2019-12-04] MEDS: *HR* Heparin 5,000 UNIT/ML VIAL SQ SCH ×2 (09:27→18:35)
[2019-12-04 10:43] LABS: BUN/Creatinine Ratio 23 (6-26); Blood Urea Nitrogen 16 mg/dL (6-20); Calcium 8.4 mg/dL (8.6-10.3); Carbon Dioxide 20 mEq/L (23-29); Chloride 109 mEq/L (98-107); Glucose 150 mg/dL (70-105); Osmolality,Calculated 288 (280-300); Potassium 3.9 mEq/L (3.5-5.1); Sodium 137 mEq/L (136-145); eGFR For African Americans > 60 (> 60); eGFR For Non-African Americans > 60 (> 60)
[2019-12-04] MEDS ORDERED: Benzonatate 100 MG CAPSULE PO PRN (10:57)
[2019-12-04] MEDS: Ipratropium/Albuterol Neb 3 ML IH SCH ×3 (11:31→19:27)
[2019-12-04] MEDS: Insulin LISPRO 300 UNITS/3 ML VIAL SQ SCH ×3 (12:22→20:38)
[2019-12-04] MEDS ORDERED: Haloperidol Lactate 5 MG/ML VIAL IVP ONE (15:03)
[2019-12-04] MEDS ORDERED: FLU Vac QV 19-20 (6Month+)/PF 0.5 ML SYRINGE IM ONE (15:29)
[2019-12-04] MEDS ORDERED: Metoclopramide 10 MG/2 ML VIAL IVP ONE (18:42)
[2019-12-04] MEDS: Insulin DETEMIR 100 UNIT/ML X5UNITS SQ SCH (20:55)
[2019-12-05] MEDS: Ipratropium/Albuterol Neb 3 ML IH SCH ×7 (00:24→23:21)
[2019-12-05] MEDS: Acetaminophen 325 MG TABLET PO PRN ×2 (00:28→14:51)
[2019-12-05] MEDS ORDERED: *HR* Metoprolol 5 MG/5 ML VIAL IVP ONE ×3 (04:21→06:19)
[2019-12-05 05:38] LABS: BUN/Creatinine Ratio 17 (6-26); Blood Urea Nitrogen 9 mg/dL (6-20); Calcium 8.3 mg/dL (8.6-10.3); Carbon Dioxide 21 mEq/L (23-29); Chloride 105 mEq/L (98-107); Glucose 41 mg/dL (70-105); Osmolality,Calculated 275 (280-300); Sodium 135 mEq/L (136-145); eGFR For African Americans > 60 (> 60); eGFR For Non-African Americans > 60 (> 60)
[2019-12-05] MEDS: *HR* Heparin 5,000 UNIT/ML VIAL SQ SCH ×2 (06:26→17:20)
[2019-12-05] MEDS ORDERED: Potassium Chloride Elixir 20 MEQ/15 ML UDC PO ONE (07:02)
[2019-12-05] MEDS: Insulin DETEMIR 100 UNIT/ML X5UNITS SQ SCH ×2 (08:28→20:59)
[2019-12-05] MEDS: Insulin LISPRO 300 UNITS/3 ML VIAL SQ SCH ×4 (08:29→20:59)
[2019-12-05] MEDS ORDERED: Calcium Gluconate 1gm/50mL 1 GM/50 ML BAG IVPB ONE (09:30)
[2019-12-05] MEDS: Metoprolol XL (24 HR) Succ 25 MG TAB.ER.24H PO SCH (10:06)
[2019-12-05 10:11] LABS: Hematocrit 39.9 % (37.5-50.1); Hemoglobin 13.5 g/dL (12.9-16.9); Mean Corpuscular HGB Conc 33.8 g/dL (31.6-35.5); Mean Corpuscular Hemoglobin 30.1 pg (28.0-33.3); Mean Corpuscular Volume 89.1 fL (83.0-100.0); Mean Platelet Volume 9.7 fL (9.4-12.4); Platelet Count 240 K/mcL (140-400); Red Blood Count 4.48 M/mcL (4.19-5.50); Red Cell Distribution Width 12.4 % (11.5-14.5); White Blood Count 7.9 K/mcL (4.3-11.1)
[2019-12-05 10:32] LABS: Magnesium 1.9 mg/dL (1.6-2.6)
[2019-12-05 10:38] LABS: Thyroid Stimulating Hormone 0.573 mcIU/mL (0.340-5.600)
[2019-12-05 10:52] LABS: Lymphocytes # 0.7 K/mcL (0.6-4.6); Monocytes # 0.5 K/mcL (0.0-1.3); Neutrophils # 6.6 K/mcL (1.6-8.9)
[2019-12-05 10:53] LABS: Platelet Estimate Normal (Normal)
[2019-12-05] MEDS: cefTRIAXone 1,000 MG in Water for inj. (sterile) 10 ML IVP SCH (13:28)
[2019-12-05] MEDS: Metoclopramide 10 MG/2 ML VIAL IVP PRN (13:29)
[2019-12-05] MEDS ORDERED: FLU Vac QV 19-20 (6Month+)/PF 0.5 ML SYRINGE IM ONE (15:29)
[2019-12-05] MEDS: Doxycycline 100 MG in 0.9 % Sodium Chloride Mini Bag 100 ML IVPB SCH (17:21)
[2019-12-05] MEDS: rOPINIRole 0.25 MG TABLET PO SCH (17:52)
[2019-12-06] MEDS: Metoclopramide 10 MG/2 ML VIAL IVP PRN (01:07)
[2019-12-06] MEDS: Ipratropium/Albuterol Neb 3 ML IH SCH ×6 (03:57→23:34)
[2019-12-06] MEDS: *HR* Heparin 5,000 UNIT/ML VIAL SQ SCH ×2 (05:18→17:06)
[2019-12-06] MEDS: Doxycycline 100 MG in 0.9 % Sodium Chloride Mini Bag 100 ML IVPB SCH ×2 (05:19→17:07)
[2019-12-06] MEDS: Ondansetron 4 MG/2 ML VIAL IVP PRN (06:46)
[2019-12-06] MEDS: Aspirin Enteric Coated 81 MG Tablet PO SCH (08:27)
[2019-12-06] MEDS: FLUoxetine 20 MG CAPSULE PO SCH (08:27)
[2019-12-06] MEDS: Metoprolol XL (24 HR) Succ 25 MG TAB.ER.24H PO SCH (08:27)
[2019-12-06] MEDS: Insulin DETEMIR 100 UNIT/ML X5UNITS SQ SCH ×2 (08:28→20:11)
[2019-12-06] MEDS ORDERED: Insulin LISPRO 300 UNITS/3 ML VIAL SQ SCH (08:30)
[2019-12-06] MEDS: Insulin LISPRO 300 UNITS/3 ML VIAL SQ SCH ×2 (12:05→17:07)
[2019-12-06] MEDS: cefTRIAXone 1,000 MG in Water for inj. (sterile) 10 ML IVP SCH (13:43)
[2019-12-06] MEDS: rOPINIRole 0.25 MG TABLET PO SCH (17:07)
[2019-12-06] MEDS: Acetylcysteine 10% 2 ML INHSOL IH SCH ×2 (19:54→23:34)
[2019-12-07] MEDS: Ipratropium/Albuterol Neb 3 ML IH SCH ×2 (03:48→07:30)
[2019-12-07] MEDS: Acetylcysteine 10% 2 ML INHSOL IH SCH ×2 (03:48→07:30)
[2019-12-07 04:34] LABS: BUN/Creatinine Ratio 20 (6-26); Blood Urea Nitrogen 11 mg/dL (6-20); Calcium 8.3 mg/dL (8.6-10.3); Carbon Dioxide 26 mEq/L (23-29); Chloride 100 mEq/L (98-107); Glucose 118 mg/dL (70-105); Osmolality,Calculated 278 (280-300); Potassium 4.1 mEq/L (3.5-5.1); Sodium 134 mEq/L (136-145); eGFR For African Americans > 60 (> 60); eGFR For Non-African Americans > 60 (> 60)
[2019-12-07] MEDS: Doxycycline 100 MG in 0.9 % Sodium Chloride Mini Bag 100 ML IVPB SCH (05:12)
[2019-12-07] MEDS: *HR* Heparin 5,000 UNIT/ML VIAL SQ SCH (05:12)
[2019-12-07 08:02] VITALS: BP 148/93
[2019-12-07] MEDS: Insulin LISPRO 300 UNITS/3 ML VIAL SQ SCH (08:34)
[2019-12-07] MEDS: FLUoxetine 20 MG CAPSULE PO SCH (08:45)
[2019-12-07] MEDS: Metoprolol XL (24 HR) Succ 25 MG TAB.ER.24H PO SCH (08:45)
[2019-12-07] MEDS: Aspirin Enteric Coated 81 MG Tablet PO SCH (08:45)
[2019-12-07] MEDS: Insulin DETEMIR 100 UNIT/ML X5UNITS SQ SCH (08:46)
== END 2019-12-07 10:58 | disposition home or self-care (01) | DRG 420 ==
LOC: 2NNU 10:27 → EMEROOARM 10:27 → SUATTDRO 13:03 → 2NNU 14:43
PROVIDERS: ADMIT Internal Medicine; ATTEND Internal Medicine

== ENCOUNTER 2020-11-04 11:15 | Observation (INO) ==
[2020-11-04] MEDS ORDERED: 0.9 % Sodium Chloride 1,000 ML IVC ONE ×2 (11:30)
[2020-11-04 11:54] LABS: Basophils # 0.2 K/mcL (0.0-0.2); Basophils % 0.7 %; Hematocrit 48.7 % (37.5-50.1); Hemoglobin 15.4 g/dL (12.9-16.9); Immature Granulocytes % 1.7 % (0-4); Lymphocytes # 1.8 K/mcL (0.6-4.6); Lymphocytes % 6.9 %; Mean Corpuscular HGB Conc 31.6 g/dL (31.6-35.5); Mean Corpuscular Hemoglobin 30.7 pg (28.0-33.3); Monocytes # 0.7 K/mcL (0.0-1.3); Monocytes % 2.7 %; Platelet Count 465 K/mcL (140-400); Red Blood Count 5.02 M/mcL (4.19-5.50); Red Cell Distribution Width 11.5 % (11.5-14.5); White Blood Count 25.5 K/mcL (4.3-11.1)
[2020-11-04 11:55] LABS: Neutrophils # 22.4 K/mcL (1.6-8.9)
[2020-11-04 12:10] LABS: VBG HCO3 11 mEq/L (21-27); VBG PCO2 34 mmHg (41-51); VBG PH 7.11 pH Units (7.32-7.42); VBG PO2 49 mmHg (25-50)
[2020-11-04 12:11] LABS: Hypersegmented Neutrophils Present (Not Present); Platelet Estimate Normal (Normal)
[2020-11-04 12:17] LABS: Bilirubin,Urine Negative (Negative); Blood,Urine Trace (Negative); Clarity,Urine Clear (Clear); Color,Urine Light-Yellow (Yellow); Glucose,Urine (UA) >=1000 mg/dL (Normal); Ketones,Urine 80 mg/dL (Negative); Leukocyte Esterase,Urine Negative (Negative); Mucus,Urine Few per lpf (None-Few); Nitrite,Urine Negative (Negative); PH,Urine 5.5 pH Units (5.0-8.0); Protein,Urine 30 mg/dL (Neg-Trace); RBC,Urine 0-3 per hpf (0-3); Specific Gravity,Urine 1.027 (1.010-1.025); Urobilinogen,Urine Normal (Normal); WBC,Urine 0-3 per hpf (0-3)
[2020-11-04 12:57] LABS: Alanine Aminotransferase 24 Units/L (7-52); Albumin/Globulin Ratio 1.3 (1.1-2.2); Alkaline Phosphatase 111 Units/L (34-104); Aspartate Amino Transferase 19 Units/L (13-39); BUN/Creatinine Ratio 28 (6-26); Bilirubin,Direct 0.1 mg/dL (0.0-0.2); Bilirubin,Indirect 0.3 mg/dL (0.0-1.0); Bilirubin,Total 0.4 mg/dL (0.3-1.0); Blood Urea Nitrogen 43 mg/dL (6-20); Calcium 10.3 mg/dL (8.6-10.3); Carbon Dioxide 9 mEq/L (23-29); Chloride 93 mEq/L (98-107); Globulin 3.2 g/dL (2.4-3.5); Lipase 75 Units/L (11-82); Magnesium 2.1 mg/dL (1.6-2.6); Osmolality,Calculated 333 (280-300); Potassium 4.8 mEq/L (3.5-5.1); Sodium 137 mEq/L (136-145); Total Protein 7.2 g/dL (6.4-8.9); Troponin I < 0.03 ng/mL (< 0.04); eGFR For African Americans 57 (> 60); eGFR For Non-African Americans 47 (> 60)
[2020-11-04 12:59] LABS: Glucose 790 mg/dL (70-105)
[2020-11-04] MEDS: Insulin Human Regular 100 UNIT in 0.9 % Sodium Chloride 100 ML IVC SCH ×2 (13:15→22:45)
[2020-11-04] MEDS ORDERED: 0.9 % Sodium Chloride w KCl 20 MEQ/1,000 ML MLS IVC SCH (13:30)
[2020-11-04] MEDS ORDERED: D5% in 0.45% NACL 1,000 ML IVC PRN (14:09)
[2020-11-04] MEDS ORDERED: *HR* Dextrose 50 % in Water (Vial) 50 ML VIAL IVP PRN ×2 (14:09→16:57)
[2020-11-04] MEDS ORDERED: Acetaminophen 325 MG TABLET PO PRN (14:28)
[2020-11-04] MEDS ORDERED: Naloxone 0.4 MG/ML INJ IVP PRN (14:28)
[2020-11-04] MEDS ORDERED: Ondansetron 4 MG/2 ML VIAL IVP PRN (14:28)
[2020-11-04] MEDS ORDERED: *HR* LORazepam 2 MG/ML VIAL IVP PRN ×3 (14:34)
[2020-11-04 15:18] LABS: Amphetamine Screen,Urine Negative ng/mL (Cutoff=1000); Barbiturate Screen,Urine Negative ng/mL (Cutoff=200); Benzodiazepines Screen,Urine Negative ng/mL (Cutoff=200); Cannabinoid Screen,Urine Positive ng/mL (Cutoff = 50); Cocaine Screen,Urine Negative ng/mL (Cutoff= 300); Opiate Screen,Urine Negative ng/mL (Cutoff=300); Phencyclidine Screen,Urine Negative ng/mL (Cutoff=25)
[2020-11-04 16:33] LABS: BUN/Creatinine Ratio 30 (6-26); Blood Urea Nitrogen 42 mg/dL (6-20); Calcium 9.6 mg/dL (8.6-10.3); Carbon Dioxide 13 mEq/L (23-29); Chloride 104 mEq/L (98-107); Glucose 557 mg/dL (70-105); Osmolality,Calculated 328 (280-300); Potassium 4.3 mEq/L (3.5-5.1); Sodium 141 mEq/L (136-145); eGFR For African Americans > 60 (> 60); eGFR For Non-African Americans 54 (> 60)
[2020-11-04 16:39] LABS: ABG Base Excess -9 mEq/L (-2 to 3); ABG HCO3 16 mEq/L (21-27); ABG Oxygen Saturation 94 % (95-98); ABG PCO2 30 mmHg (35-45); ABG PH 7.33 pH Units (7.32-7.45); ABG PO2 75 mmHg (85-104); ABG TCO2 17 mEq/L (20-26)
[2020-11-04] MEDS: Thiamine (B-1) 200 MG in 0.9 % Sodium Chloride 50 ML IVPB SCH (16:42)
[2020-11-04] MEDS: Folic Acid 1 MG in 0.9 % Sodium Chloride 50 ML IVPB SCH (16:42)
[2020-11-04] MEDS ORDERED: Insulin Regular, Human 100 UNIT/ML IV PRN (16:57)
[2020-11-04] MEDS ORDERED: Potassium Phosphate 44 MEQ in 0.9 % Sodium Chloride 250 ML IVPB PRN (17:08)
[2020-11-04] MEDS ORDERED: Calcium Gluconate 1gm/50mL 1 GM/50 ML BAG IVPB PRN (17:08)
[2020-11-04] MEDS: 0.45 % Sodium Chloride w/KCl 20 MEQ/1,000 ML MLS IVC SCH (18:00)
[2020-11-04 18:09] LABS: Basophils # 0.1 K/mcL (0.0-0.2); Basophils % 0.5 %; Hematocrit 42.7 % (37.5-50.1); Immature Granulocytes % 1.2 % (0-4); Lymphocytes # 2.2 K/mcL (0.6-4.6); Lymphocytes % 9.5 %; Mean Corpuscular HGB Conc 32.8 g/dL (31.6-35.5); Mean Corpuscular Hemoglobin 30.1 pg (28.0-33.3); Mean Corpuscular Volume 91.8 fL (83.0-100.0); Mean Platelet Volume 9.8 fL (9.4-12.4); Monocytes # 1.1 K/mcL (0.0-1.3); Monocytes % 4.8 %; Platelet Count 422 K/mcL (140-400); Red Blood Count 4.65 M/mcL (4.19-5.50); Red Cell Distribution Width 11.5 % (11.5-14.5); White Blood Count 22.7 K/mcL (4.3-11.1)
[2020-11-04 18:27] LABS: BUN/Creatinine Ratio 33 (6-26); Blood Urea Nitrogen 40 mg/dL (6-20); Calcium 9.2 mg/dL (8.6-10.3); Carbon Dioxide 17 mEq/L (23-29); Chloride 109 mEq/L (98-107); Glucose 405 mg/dL (70-105); Osmolality,Calculated 323 (280-300); Potassium 4.3 mEq/L (3.5-5.1); Sodium 143 mEq/L (136-145); eGFR For African Americans > 60 (> 60); eGFR For Non-African Americans > 60 (> 60)
[2020-11-04] MEDS: D5% in 0.45% NACL w KCl 20 MEQ/1,000 ML MLS IVC PRN (22:43)
[2020-11-05 01:21] LABS: Basophils % 0.2 %; Hematocrit 37.7 % (37.5-50.1); Immature Granulocytes % 0.8 % (0-4); Lymphocytes # 2.4 K/mcL (0.6-4.6); Lymphocytes % 10.7 %; Mean Corpuscular HGB Conc 32.9 g/dL (31.6-35.5); Mean Corpuscular Hemoglobin 29.7 pg (28.0-33.3); Mean Corpuscular Volume 90.4 fL (83.0-100.0); Monocytes # 1.5 K/mcL (0.0-1.3); Neutrophils # 17.8 K/mcL (1.6-8.9); Platelet Count 403 K/mcL (140-400); Red Blood Count 4.17 M/mcL (4.19-5.50); Red Cell Distribution Width 11.6 % (11.5-14.5); Segmented Neutrophils % 81.3 %; White Blood Count 21.9 K/mcL (4.3-11.1)
[2020-11-05 01:22] LABS: Hemoglobin 12.4 g/dL (12.9-16.9)
[2020-11-05 01:26] LABS: VBG HCO3 23 mEq/L (21-27); VBG PCO2 40 mmHg (41-51); VBG PH 7.36 pH Units (7.32-7.42); VBG PO2 79 mmHg (25-50)
[2020-11-05 01:37] LABS: BUN/Creatinine Ratio 35 (6-26); Blood Urea Nitrogen 34 mg/dL (6-20); Calcium 8.7 mg/dL (8.6-10.3); Carbon Dioxide 21 mEq/L (23-29); Chloride 110 mEq/L (98-107); Glucose 145 mg/dL (70-105); Magnesium 1.9 mg/dL (1.6-2.6); Osmolality,Calculated 298 (280-300); Phosphorous 1.5 mg/dL (2.7-4.5); Potassium 3.7 mEq/L (3.5-5.1); Sodium 139 mEq/L (136-145); eGFR For African Americans > 60 (> 60); eGFR For Non-African Americans > 60 (> 60)
[2020-11-05] MEDS ORDERED: D5% in Water 1,000 ML IVC PRN (03:31)
[2020-11-05] MEDS ORDERED: Dextrose Gel 15 GM/37.5 ML TUBE PO PRN ×2 (03:31)
[2020-11-05] MEDS ORDERED: *HR* Dextrose 50 % in Water (Vial) 50 ML VIAL IVP PRN (03:31)
[2020-11-05] MEDS: D5% in 0.45% NACL w KCl 20 MEQ/1,000 ML MLS IVC PRN (03:43)
[2020-11-05] MEDS ORDERED: Insulin DETEMIR 100 UNIT/ML X5UNITS SUBQ SCH (03:45)
[2020-11-05 05:08] LABS: VBG HCO3 22 mEq/L (21-27); VBG PCO2 37 mmHg (41-51); VBG PH 7.38 pH Units (7.32-7.42); VBG PO2 93 mmHg (25-50)
[2020-11-05 05:28] LABS: Albumin 3.4 g/dL (3.5-5.7); BUN/Creatinine Ratio 40 (6-26); Blood Urea Nitrogen 32 mg/dL (6-20); Calcium 8.6 mg/dL (8.6-10.3); Carbon Dioxide 20 mEq/L (23-29); Chloride 109 mEq/L (98-107); Glucose 120 mg/dL (70-105); Magnesium 2.2 mg/dL (1.6-2.6); Osmolality,Calculated 292 (280-300); Phosphorous 1.9 mg/dL (2.7-4.5); Potassium 3.9 mEq/L (3.5-5.1); Sodium 137 mEq/L (136-145); eGFR For African Americans > 60 (> 60); eGFR For Non-African Americans > 60 (> 60)
[2020-11-05 07:30] LABS: Estimated Average Glucose 398 mg/dl; Hemoglobin A1C 15.5 %
[2020-11-05] MEDS ORDERED: Insulin LISPRO 300 UNITS/3 ML VIAL SUBQ SCH ×2 (07:30→08:00)
[2020-11-05] MEDS ORDERED: *HR* Labetalol 20 MG/4 ML SYRINGE IVP ONE (07:48)
[2020-11-05] MEDS: 0.45 % Sodium Chloride w/KCl 20 MEQ/1,000 ML MLS IVC SCH (08:27)
[2020-11-05] MEDS: Folic Acid 1 MG in 0.9 % Sodium Chloride 50 ML IVPB SCH (08:28)
[2020-11-05] MEDS: Thiamine (B-1) 200 MG in 0.9 % Sodium Chloride 50 ML IVPB SCH (08:28)
[2020-11-05 11:32] VITALS: BP 164/84
[2020-11-05 11:39] LABS: BUN/Creatinine Ratio 34 (6-26); Blood Urea Nitrogen 25 mg/dL (6-20); Carbon Dioxide 23 mEq/L (23-29); Chloride 109 mEq/L (98-107); Glucose 151 mg/dL (70-105); Osmolality,Calculated 293 (280-300); Sodium 138 mEq/L (136-145); eGFR For African Americans > 60 (> 60); eGFR For Non-African Americans > 60 (> 60)
== END 2020-11-05 17:16 | disposition home or self-care (01) ==
LOC: EMEROOARM 11:15 → 2NNU 11:15 → SUATTDRO 14:15 → 2NNU 16:16
PROVIDERS: ADMIT Internal Medicine; ATTEND Internal Medicine

== ENCOUNTER 2020-12-27 15:19 | Inpatient (IN) ==
[2020-12-27 17:09] LABS: Basophils # 0.1 K/mcL (0.0-0.2); Basophils % 0.6 %; Eosinophils % 0.1 %; Hematocrit 41.9 % (37.5-50.1); Hemoglobin 13.2 g/dL (12.9-16.9); Immature Granulocytes % 1.3 % (0-4); Lymphocytes # 1.4 K/mcL (0.6-4.6); Lymphocytes % 10.1 %; Mean Corpuscular HGB Conc 31.5 g/dL (31.6-35.5); Mean Corpuscular Hemoglobin 30.1 pg (28.0-33.3); Mean Corpuscular Volume 95.4 fL (83.0-100.0); Mean Platelet Volume 9.7 fL (9.4-12.4); Monocytes # 0.3 K/mcL (0.0-1.3); Neutrophils # 12.3 K/mcL (1.6-8.9); Platelet Count 444 K/mcL (140-400); Red Blood Count 4.39 M/mcL (4.19-5.50); Red Cell Distribution Width 11.4 % (11.5-14.5); Segmented Neutrophils % 85.9 %; White Blood Count 14.3 K/mcL (4.3-11.1)
[2020-12-27] MEDS ORDERED: Isovue-370 500 ML BOTTLE IVP ONE (17:16)
[2020-12-27] MEDS ORDERED: Ondansetron 4 MG/2 ML VIAL IVP ONE (17:16)
[2020-12-27] MEDS ORDERED: Morphine Sulfate 2 MG/ML SYRINGE IVP ONE (17:16)
[2020-12-27] MEDS: 0.9 % Sodium Chloride 1,000 ML IVC SCH ×2 (17:31→19:09)
[2020-12-27 17:38] LABS: BUN/Creatinine Ratio 31 (6-26); Blood Urea Nitrogen 38 mg/dL (6-20); Calcium 9.7 mg/dL (8.6-10.3); Carbon Dioxide 11 mEq/L (23-29); Chloride 97 mEq/L (98-107); Glucose 495 mg/dL (70-105); Osmolality,Calculated 313 (280-300); Potassium 4.7 mEq/L (3.5-5.1); Sodium 136 mEq/L (136-145); eGFR For African Americans > 60 (> 60); eGFR For Non-African Americans > 60 (> 60)
[2020-12-27 18:27] LABS: Alanine Aminotransferase 24 Units/L (7-52); Albumin/Globulin Ratio 1.5 (1.1-2.2); Alkaline Phosphatase 99 Units/L (34-104); Aspartate Amino Transferase 25 Units/L (13-39); Bilirubin,Total 0.4 mg/dL (0.3-1.0); Globulin 2.7 g/dL (2.4-3.5); Total Protein 6.7 g/dL (6.4-8.9)
[2020-12-27 18:40] LABS: VBG HCO3 11 mEq/L (21-27); VBG PCO2 25 mmHg (41-51); VBG PH 7.23 pH Units (7.32-7.42); VBG PO2 131 mmHg (25-50)
[2020-12-27] MEDS: Insulin Human Regular 100 UNIT in 0.9 % Sodium Chloride 100 ML IVC SCH (19:10)
[2020-12-27] MEDS ORDERED: Naloxone 0.4 MG/ML INJ IVP PRN (19:56)
[2020-12-27] MEDS ORDERED: Ondansetron 4 MG/2 ML VIAL IVP PRN (19:56)
[2020-12-27] MEDS ORDERED: Insulin Regular, Human 100 UNIT/ML IV PRN (19:58)
[2020-12-27] MEDS ORDERED: *HR* Dextrose 50 % in Water (Vial) 50 ML VIAL IVP PRN (19:58)
[2020-12-27 20:36] LABS: BUN/Creatinine Ratio 33 (6-26); Blood Urea Nitrogen 40 mg/dL (6-20); Carbon Dioxide 10 mEq/L (23-29); Chloride 98 mEq/L (98-107); Glucose 522 mg/dL (70-105); Osmolality,Calculated 311 (280-300); Potassium 4.5 mEq/L (3.5-5.1); Sodium 134 mEq/L (136-145); Troponin I 0.05 ng/mL (< 0.04); eGFR For African Americans > 60 (> 60); eGFR For Non-African Americans > 60 (> 60)
[2020-12-27 20:44] LABS: Estimated Average Glucose 324 mg/dl; Hemoglobin A1C 12.9 %
[2020-12-27] MEDS: 0.9 % Sodium Chloride w KCl 20 MEQ/1,000 ML MLS IVC SCH ×2 (20:54→23:41)
[2020-12-27 21:59] LABS: BUN/Creatinine Ratio 33 (6-26); Blood Urea Nitrogen 40 mg/dL (6-20); Calcium 8.4 mg/dL (8.6-10.3); Carbon Dioxide 10 mEq/L (23-29); Chloride 105 mEq/L (98-107); Glucose 451 mg/dL (70-105); Osmolality,Calculated 315 (280-300); Potassium 4.2 mEq/L (3.5-5.1); Sodium 138 mEq/L (136-145); eGFR For African Americans > 60 (> 60); eGFR For Non-African Americans > 60 (> 60)
[2020-12-27] MEDS ORDERED: Sodium Bicarbonate 50 MEQ in 0.45 % Sodium Chloride 1,000 ML IVC SCH (22:45)
[2020-12-27] MEDS: *HR* Heparin 5,000 UNIT/ML VIAL SQ SCH (23:38)
[2020-12-28 00:43] LABS: Bilirubin,Urine Negative (Negative); Blood,Urine Negative (Negative); Clarity,Urine Clear (Clear); Color,Urine Light-Yellow (Yellow); Glucose,Urine (UA) >=1000 mg/dL (Normal); Ketones,Urine 100 mg/dL (Negative); Leukocyte Esterase,Urine Negative (Negative); Nitrite,Urine Negative (Negative); PH,Urine 5.5 pH Units (5.0-8.0); Protein,Urine Trace mg/dL (Neg-Trace); RBC,Urine 0-3 per hpf (0-3); Specific Gravity,Urine 1.025 (1.010-1.025); Urobilinogen,Urine Normal (Normal)
[2020-12-28] MEDS: 0.9 % Sodium Chloride w KCl 20 MEQ/1,000 ML MLS IVC SCH ×3 (01:06→10:04)
[2020-12-28 01:15] LABS: Basophils # 0.1 K/mcL (0.0-0.2); Basophils % 0.4 %; Hematocrit 33.7 % (37.5-50.1); Immature Granulocytes % 1.2 % (0-4); Lymphocytes # 2.7 K/mcL (0.6-4.6); Lymphocytes % 12.1 %; Mean Corpuscular HGB Conc 32.6 g/dL (31.6-35.5); Mean Corpuscular Hemoglobin 30.7 pg (28.0-33.3); Mean Corpuscular Volume 94.1 fL (83.0-100.0); Mean Platelet Volume 9.4 fL (9.4-12.4); Monocytes # 1.6 K/mcL (0.0-1.3); Monocytes % 7.3 %; Neutrophils # 17.8 K/mcL (1.6-8.9); Platelet Count 381 K/mcL (140-400); Red Blood Count 3.58 M/mcL (4.19-5.50); Red Cell Distribution Width 11.7 % (11.5-14.5); White Blood Count 22.5 K/mcL (4.3-11.1)
[2020-12-28 01:29] LABS: BUN/Creatinine Ratio 34 (6-26); Blood Urea Nitrogen 36 mg/dL (6-20); Calcium 8.1 mg/dL (8.6-10.3); Carbon Dioxide 14 mEq/L (23-29); Chloride 111 mEq/L (98-107); Glucose 246 mg/dL (70-105); Osmolality,Calculated 303 (280-300); Potassium 4.2 mEq/L (3.5-5.1); Sodium 138 mEq/L (136-145); eGFR For African Americans > 60 (> 60); eGFR For Non-African Americans > 60 (> 60)
[2020-12-28 01:31] LABS: Troponin I < 0.03 ng/mL (< 0.04)
[2020-12-28] MEDS: D5% in 0.45% NACL w KCl 20 MEQ/1,000 ML MLS IVC PRN ×2 (02:07→06:00)
[2020-12-28] MEDS ORDERED: Insulin Human Regular 100 UNIT in 0.9 % Sodium Chloride 100 ML IVC SCH (02:15)
[2020-12-28] MEDS: Insulin Human Regular 100 UNIT in 0.9 % Sodium Chloride 100 ML IVC SCH (03:09)
[2020-12-28] MEDS: *HR* Heparin 5,000 UNIT/ML VIAL SQ SCH ×3 (06:01→21:28)
[2020-12-28 07:08] LABS: BUN/Creatinine Ratio 34 (6-26); Blood Urea Nitrogen 31 mg/dL (6-20); Calcium 7.8 mg/dL (8.6-10.3); Carbon Dioxide 21 mEq/L (23-29); Chloride 113 mEq/L (98-107); Glucose 111 mg/dL (70-105); Osmolality,Calculated 295 (280-300); Potassium 3.6 mEq/L (3.5-5.1); Sodium 139 mEq/L (136-145); eGFR For African Americans > 60 (> 60); eGFR For Non-African Americans > 60 (> 60)
[2020-12-28] MEDS ORDERED: *HR* Dextrose 50 % in Water (Vial) 50 ML VIAL IVP PRN (07:53)
[2020-12-28] MEDS ORDERED: Dextrose Gel 15 GM/37.5 ML TUBE PO PRN ×2 (07:53)
[2020-12-28] MEDS ORDERED: D5% in Water 1,000 ML IVC PRN (07:53)
[2020-12-28] MEDS: Insulin LISPRO 300 UNITS/3 ML VIAL SUBQ SCH ×4 (08:29→21:20)
[2020-12-28] MEDS: Sennosides/Docusate Sodium TABLET PO SCH ×2 (08:32→21:28)
[2020-12-28] MEDS: Insulin DETEMIR 100 UNIT/ML X5UNITS SUBQ SCH ×2 (08:32→21:25)
[2020-12-28] MEDS: rOPINIRole 0.25 MG TABLET PO SCH (17:19)
[2020-12-29] MEDS: *HR* Heparin 5,000 UNIT/ML VIAL SQ SCH ×3 (05:09→21:38)
[2020-12-29 05:10] LABS: Basophils # 0.1 K/mcL (0.0-0.2); Basophils % 0.4 %; Eosinophils # 0.1 K/mcL (0.0-0.6); Hemoglobin 11.3 g/dL (12.9-16.9); Immature Granulocytes % 0.4 % (0-4); Lymphocytes # 2.1 K/mcL (0.6-4.6); Lymphocytes % 17.9 %; Mean Corpuscular HGB Conc 33.2 g/dL (31.6-35.5); Mean Corpuscular Hemoglobin 30.7 pg (28.0-33.3); Mean Corpuscular Volume 92.4 fL (83.0-100.0); Mean Platelet Volume 9.5 fL (9.4-12.4); Monocytes # 0.7 K/mcL (0.0-1.3); Neutrophils # 8.6 K/mcL (1.6-8.9); Platelet Count 367 K/mcL (140-400); Red Blood Count 3.68 M/mcL (4.19-5.50); Red Cell Distribution Width 11.7 % (11.5-14.5); Segmented Neutrophils % 74.3 %; White Blood Count 11.5 K/mcL (4.3-11.1)
[2020-12-29 05:32] LABS: BUN/Creatinine Ratio 23 (6-26); Blood Urea Nitrogen 20 mg/dL (6-20); Calcium 8.3 mg/dL (8.6-10.3); Carbon Dioxide 20 mEq/L (23-29); Chloride 102 mEq/L (98-107); Glucose 434 mg/dL (70-105); Osmolality,Calculated 295 (280-300); Potassium 4.3 mEq/L (3.5-5.1); Sodium 132 mEq/L (136-145); eGFR For African Americans > 60 (> 60); eGFR For Non-African Americans > 60 (> 60)
[2020-12-29] MEDS: Insulin DETEMIR 100 UNIT/ML X5UNITS SUBQ SCH ×2 (06:52→21:30)
[2020-12-29] MEDS: Sennosides/Docusate Sodium TABLET PO SCH ×2 (08:11→21:29)
[2020-12-29] MEDS: FLUoxetine HCl 10 MG CAPSULE PO SCH (08:12)
[2020-12-29] MEDS: Insulin LISPRO 300 UNITS/3 ML VIAL SUBQ SCH ×4 (08:14→21:25)
[2020-12-29] MEDS ORDERED: Insulin DETEMIR 100 UNIT/ML X5UNITS SUBQ ONE (08:37)
[2020-12-29] MEDS: lisinopriL 5 MG TABLET PO SCH (15:03)
[2020-12-29] MEDS: rOPINIRole 0.25 MG TABLET PO SCH (17:07)
[2020-12-30 02:19] LABS: Basophils # 0.1 K/mcL (0.0-0.2); Eosinophils # 0.1 K/mcL (0.0-0.6); Eosinophils % 1.3 %; Hematocrit 32.6 % (37.5-50.1); Hemoglobin 11.2 g/dL (12.9-16.9); Immature Granulocytes % 0.3 % (0-4); Lymphocytes # 2.9 K/mcL (0.6-4.6); Lymphocytes % 31.4 %; Mean Corpuscular HGB Conc 34.4 g/dL (31.6-35.5); Mean Corpuscular Hemoglobin 30.8 pg (28.0-33.3); Mean Corpuscular Volume 89.6 fL (83.0-100.0); Mean Platelet Volume 9.6 fL (9.4-12.4); Monocytes # 0.9 K/mcL (0.0-1.3); Monocytes % 9.6 %; Neutrophils # 5.1 K/mcL (1.6-8.9); Platelet Count 335 K/mcL (140-400); Red Blood Count 3.64 M/mcL (4.19-5.50); Red Cell Distribution Width 11.5 % (11.5-14.5); Segmented Neutrophils % 56.4 %; White Blood Count 9.1 K/mcL (4.3-11.1)
[2020-12-30 02:38] LABS: BUN/Creatinine Ratio 25 (6-26); Blood Urea Nitrogen 18 mg/dL (6-20); Calcium 8.4 mg/dL (8.6-10.3); Carbon Dioxide 23 mEq/L (23-29); Chloride 103 mEq/L (98-107); Glucose 299 mg/dL (70-105); Osmolality,Calculated 289 (280-300); Potassium 3.9 mEq/L (3.5-5.1); Sodium 133 mEq/L (136-145); eGFR For African Americans > 60 (> 60); eGFR For Non-African Americans > 60 (> 60)
[2020-12-30] MEDS: *HR* Heparin 5,000 UNIT/ML VIAL SQ SCH (05:47)
[2020-12-30 07:20] VITALS: BP 157/84
[2020-12-30] MEDS ORDERED: Insulin DETEMIR 100 UNIT/ML X5UNITS SUBQ SCH (09:00)
[2020-12-30] MEDS: lisinopriL 5 MG TABLET PO SCH (09:06)
[2020-12-30] MEDS: FLUoxetine HCl 10 MG CAPSULE PO SCH (09:06)
[2020-12-30] MEDS: Insulin LISPRO 300 UNITS/3 ML VIAL SUBQ SCH (09:06)
== END 2020-12-30 10:30 | disposition home or self-care (01) | DRG 420 ==
LOC: 2NNU 15:19 → EMEROOARM 15:19 → SUATTDRO 22:03 → 2NNU 22:34 → 3BNU 12-28 19:13
PROVIDERS: ADMIT Family Medicine; ATTEND Internal Medicine

== ENCOUNTER 2022-04-24 14:11 | Observation (INO) ==
[2022-04-24 15:38] LABS: Basophils % 0.1 %; Eosinophils % 0.1 %; Hematocrit 34.5 % (37.5-50.1); Hemoglobin 11.4 g/dL (12.9-16.9); Immature Granulocytes % 0.7 % (0-4); Lymphocytes # 1.4 K/mcL (0.6-4.6); Lymphocytes % 11.4 %; Mean Corpuscular Hemoglobin 29.4 pg (28.0-33.3); Mean Corpuscular Volume 88.9 fL (83.0-100.0); Mean Platelet Volume 9.1 fL (9.4-12.4); Monocytes # 0.5 K/mcL (0.0-1.3); Monocytes % 4.1 %; Neutrophils # 9.9 K/mcL (1.6-8.9); Platelet Count 606 K/mcL (140-400); Red Blood Count 3.88 M/mcL (4.19-5.50); Red Cell Distribution Width 11.1 % (11.5-14.5); Segmented Neutrophils % 83.6 %; White Blood Count 11.9 K/mcL (4.3-11.1)
[2022-04-24 15:52] LABS: BUN/Creatinine Ratio 22 (6-26); Blood Urea Nitrogen 28 mg/dL (6-20); Calcium 9.3 mg/dL (8.6-10.3); Carbon Dioxide 23 mEq/L (23-29); Chloride 101 mEq/L (98-107); Glucose 384 mg/dL (70-105); Osmolality,Calculated 301 (280-300); Potassium 4.7 mEq/L (3.5-5.1); Sodium 135 mEq/L (136-145); eGFR For African Americans > 60 (> 60); eGFR For Non-African Americans 60 (> 60)
[2022-04-24 16:46] LABS: Bacteria,Urine Few per hpf (None-Few); Bilirubin,Urine Negative (Negative); Blood,Urine Moderate (Negative); Clarity,Urine Clear (Clear); Color,Urine Light-Yellow (Yellow); Glucose,Urine (UA) >=1000 mg/dL (Normal); Ketones,Urine 40 mg/dL (Negative); Leukocyte Esterase,Urine Negative (Negative); Nitrite,Urine Negative (Negative); Protein,Urine >=300 mg/dL (Neg-Trace); Specific Gravity,Urine 1.029 (1.010-1.025); Squamous Epithelial Cell,Urine Few per hpf (None-Few); Urobilinogen,Urine Normal (Normal); WBC,Urine 0-3 per hpf (0-3)
[2022-04-24] MEDS ORDERED: 0.9 % Sodium Chloride 1,000 ML IV ONE (18:43)
[2022-04-24] MEDS ORDERED: Ondansetron 4 MG/2 ML VIAL IVP ONE (18:50)
[2022-04-24] MEDS ORDERED: Iopamidol - 370 500 ML MLS IVP ONE (18:52)
[2022-04-24 19:58] LABS: Alanine Aminotransferase 12 Units/L (7-52); Albumin 2.7 g/dL (3.5-5.7); Albumin/Globulin Ratio 0.8 (1.1-2.2); Alkaline Phosphatase 109 Units/L (34-104); Amylase 17 Units/L (29-103); Aspartate Amino Transferase 12 Units/L (13-39); Bilirubin,Indirect 0.2 mg/dL (0.0-1.0); Bilirubin,Total 0.2 mg/dL (0.3-1.0); Globulin 3.6 g/dL (2.4-3.5); Lipase 3 Units/L (11-82); Total Protein 6.3 g/dL (6.4-8.9)
[2022-04-24 20:17] LABS: VBG HCO3 20 mEq/L (21-27); VBG PCO2 39 mmHg (41-51); VBG PH 7.31 pH Units (7.32-7.42); VBG PO2 73 mmHg (25-50)
[2022-04-24 20:29] LABS: Troponin I < 0.03 ng/mL (< 0.04)
[2022-04-24 20:41] LABS: INR 1.1; Prothrombin Time 11.7 Seconds (9.4-12.1)
[2022-04-24 20:44] LABS: Activated Partial Thrombo Time 36.1 Seconds (26.0-36.0)
[2022-04-24] MEDS ORDERED: Pantoprazole 40 MG VIAL IVP ONE (21:08)
[2022-04-24] MEDS: Pantoprazole 40 MG in 0.9 % Sodium Chloride Mini Bag 100 ML IVC SCH (22:10)
[2022-04-24 22:11] LABS: Salicylate < 2.5 mg/dL (15.0-30.0)
[2022-04-24] MEDS ORDERED: Metoclopramide 10 MG/2 ML VIAL IVP ONE (22:30)
[2022-04-24] MEDS ORDERED: Morphine Sulfate 2 MG/ML SYRINGE IVP ONE (22:31)
[2022-04-24 23:21] LABS: Influenza A PCR Negative (Negative); Influenza B PCR Negative (Negative); Resp. Syncytial Virus PCR Negative (Negative); SARS-CoV-2 by PCR (In House) Negative (Negative)
[2022-04-24] MEDS ORDERED: Melatonin 3 MG TABLET PO PRN (23:33)
[2022-04-24] MEDS ORDERED: Ondansetron 4 MG/2 ML VIAL IVP PRN (23:33)
[2022-04-24] MEDS ORDERED: Naloxone 0.4 MG/ML INJ IVP PRN (23:33)
[2022-04-24] MEDS ORDERED: D5% in Water 1,000 ML IVC PRN (23:37)
[2022-04-24] MEDS ORDERED: Dextrose Gel 15 GM/37.5 ML TUBE PO PRN ×2 (23:37)
[2022-04-24] MEDS ORDERED: 0.9 % Sodium Chloride 1,000 ML IVC SCH (23:45)
[2022-04-24] MEDS ORDERED: Insulin DETEMIR 100 UNIT/ML X5UNITS SUBQ SCH (23:45)
[2022-04-25] MEDS: Insulin LISPRO 300 UNITS/3 ML VIAL SUBQ SCH ×3 (01:22→08:13)
[2022-04-25 02:11] LABS: Hematocrit 33.3 % (37.5-50.1); Hemoglobin 11.2 g/dL (12.9-16.9); Mean Corpuscular HGB Conc 33.6 g/dL (31.6-35.5); Mean Corpuscular Hemoglobin 30.3 pg (28.0-33.3); Mean Platelet Volume 9.1 fL (9.4-12.4); Platelet Count 574 K/mcL (140-400); Red Cell Distribution Width 11.1 % (11.5-14.5)
[2022-04-25 02:20] LABS: BUN/Creatinine Ratio 25 (6-26); Blood Urea Nitrogen 34 mg/dL (6-20); Calcium 8.8 mg/dL (8.6-10.3); Carbon Dioxide 20 mEq/L (23-29); Chloride 104 mEq/L (98-107); Glucose 351 mg/dL (70-105); Osmolality,Calculated 308 (280-300); Potassium 4.3 mEq/L (3.5-5.1); Sodium 138 mEq/L (136-145); eGFR For African Americans > 60 (> 60); eGFR For Non-African Americans 54 (> 60)
[2022-04-25] MEDS: Pantoprazole 40 MG in 0.9 % Sodium Chloride Mini Bag 100 ML IVC SCH ×2 (03:21→08:04)
[2022-04-25] MEDS ORDERED: Perflutren Lipid Microsphere 1.3 ML in 0.9 % Sodium Chloride 8.7 ML IVP PRN (10:01)
[2022-04-25] MEDS: Insulin DETEMIR 100 UNIT/ML X5UNITS SUBQ SCH ×2 (10:10→23:23)
[2022-04-25] MEDS: Famotidine 20 MG/2 ML VIAL IVP SCH ×2 (10:10→16:42)
[2022-04-25] MEDS: Pantoprazole 40 MG VIAL IVP SCH (10:10)
[2022-04-25] MEDS ORDERED: amLODIPine 5 MG TABLET PO SCH (16:15)
[2022-04-25] MEDS ORDERED: Insulin LISPRO 300 UNITS/3 ML VIAL SUBQ SCH ×2 (16:30)
[2022-04-25] MEDS: rOPINIRole 0.25 MG TABLET PO SCH (16:42)
[2022-04-25] MEDS ORDERED: NON-FORMULARY MEDICATION 1 EACH EACH (Insulin Aspart [Novolog Flexpen] 100 UNIT/ML Insuln. SQ SCH (17:00)
[2022-04-26] MEDS ORDERED: Insulin LISPRO 300 UNITS/3 ML VIAL SUBQ SCH (00:01)
[2022-04-26] MEDS: Insulin LISPRO 300 UNITS/3 ML VIAL SUBQ SCH ×4 (01:49→18:15)
[2022-04-26 02:25] LABS: Basophils % 0.1 %; Eosinophils # 0.2 K/mcL (0.0-0.6); Eosinophils % 1.1 %; Hematocrit 30.8 % (37.5-50.1); Hemoglobin 10.4 g/dL (12.9-16.9); Immature Granulocytes % 0.6 % (0-4); Lymphocytes # 2.6 K/mcL (0.6-4.6); Lymphocytes % 14.5 %; Mean Corpuscular HGB Conc 33.8 g/dL (31.6-35.5); Mean Corpuscular Hemoglobin 29.5 pg (28.0-33.3); Mean Corpuscular Volume 87.3 fL (83.0-100.0); Mean Platelet Volume 8.9 fL (9.4-12.4); Monocytes % 5.9 %; Neutrophils # 13.8 K/mcL (1.6-8.9); Platelet Count 543 K/mcL (140-400); Red Blood Count 3.53 M/mcL (4.19-5.50); Red Cell Distribution Width 11.4 % (11.5-14.5); Segmented Neutrophils % 77.8 %; White Blood Count 17.8 K/mcL (4.3-11.1)
[2022-04-26 02:35] LABS: Activated Partial Thrombo Time 30.4 Seconds (26.0-36.0)
[2022-04-26 02:53] LABS: BUN/Creatinine Ratio 26 (6-26); Blood Urea Nitrogen 23 mg/dL (6-20); Calcium 8.3 mg/dL (8.6-10.3); Carbon Dioxide 25 mEq/L (23-29); Chloride 105 mEq/L (98-107); Glucose 101 mg/dL (70-105); Magnesium 2.2 mg/dL (1.6-2.6); Osmolality,Calculated 284 (280-300); Phosphorous 2.3 mg/dL (2.7-4.5); Potassium 3.4 mEq/L (3.5-5.1); Sodium 135 mEq/L (136-145); eGFR For African Americans > 60 (> 60); eGFR For Non-African Americans > 60 (> 60)
[2022-04-26] MEDS: *HR* Dextrose 50 % in Water (Syg) 50 ML SYRINGE IVP PRN ×2 (06:17→06:33)
[2022-04-26] MEDS: lisinopriL 5 MG TABLET PO SCH ×2 (09:18→21:46)
[2022-04-26] MEDS: amLODIPine 5 MG TABLET PO SCH ×2 (09:19→21:45)
[2022-04-26] MEDS: FLUoxetine HCl 10 MG CAPSULE PO SCH (09:19)
[2022-04-26] MEDS: Insulin DETEMIR 100 UNIT/ML X5UNITS SUBQ SCH ×2 (09:20→21:47)
[2022-04-26] MEDS: Pantoprazole 40 MG VIAL IVP SCH (11:34)
[2022-04-26] MEDS ORDERED: *HR* Propofol 200 MG/20 ML VIAL IVP ONE ×2 (13:39→13:55)
[2022-04-26] MEDS ORDERED: Lidocaine -MPF 2% 5 ML VIAL ONE (13:39)
[2022-04-26] MEDS: rOPINIRole 0.25 MG TABLET PO SCH (18:05)
[2022-04-27] MEDS: Insulin LISPRO 300 UNITS/3 ML VIAL SUBQ SCH ×3 (01:26→12:38)
[2022-04-27 01:56] LABS: Basophils % 0.2 %; Eosinophils # 0.1 K/mcL (0.0-0.6); Eosinophils % 1.3 %; Hematocrit 30.8 % (37.5-50.1); Hemoglobin 10.3 g/dL (12.9-16.9); Immature Granulocytes % 1.3 % (0-4); Lymphocytes # 2.3 K/mcL (0.6-4.6); Lymphocytes % 23.3 %; Mean Corpuscular HGB Conc 33.4 g/dL (31.6-35.5); Mean Corpuscular Hemoglobin 29.4 pg (28.0-33.3); Mean Platelet Volume 9.2 fL (9.4-12.4); Monocytes # 0.8 K/mcL (0.0-1.3); Monocytes % 8.2 %; Neutrophils # 6.4 K/mcL (1.6-8.9); Platelet Count 460 K/mcL (140-400); Red Cell Distribution Width 11.2 % (11.5-14.5); Segmented Neutrophils % 65.7 %; White Blood Count 9.8 K/mcL (4.3-11.1)
[2022-04-27 02:04] LABS: Prothrombin Time 10.6 Seconds (9.4-12.1)
[2022-04-27 02:07] LABS: Amphetamine Screen,Urine Negative ng/mL (Cutoff=1000); Barbiturate Screen,Urine Negative ng/mL (Cutoff=200); Benzodiazepines Screen,Urine Negative ng/mL (Cutoff=200); Cannabinoid Screen,Urine Positive ng/mL (Cutoff = 50); Cocaine Screen,Urine Negative ng/mL (Cutoff= 300); Opiate Screen,Urine Negative ng/mL (Cutoff=300); Phencyclidine Screen,Urine Negative ng/mL (Cutoff=25)
[2022-04-27 02:07] LABS: Activated Partial Thrombo Time 31.3 Seconds (26.0-36.0)
[2022-04-27 02:15] LABS: BUN/Creatinine Ratio 19 (6-26); Blood Urea Nitrogen 21 mg/dL (6-20); Calcium 7.9 mg/dL (8.6-10.3); Carbon Dioxide 26 mEq/L (23-29); Chloride 101 mEq/L (98-107); Glucose 330 mg/dL (70-105); Magnesium 1.9 mg/dL (1.6-2.6); Osmolality,Calculated 292 (280-300); Phosphorous 2.9 mg/dL (2.7-4.5); Sodium 133 mEq/L (136-145); eGFR For African Americans > 60 (> 60); eGFR For Non-African Americans > 60 (> 60)
[2022-04-27 06:29] VITALS: O2SAT 95
[2022-04-27 06:59] VITALS: BP 164/97; PULSE 67; TEMP 97.9
[2022-04-27] MEDS ORDERED: Sucralfate 1 GM TABLET PO SCH (07:30)
[2022-04-27] MEDS: Insulin DETEMIR 100 UNIT/ML X5UNITS SUBQ SCH (09:07)
[2022-04-27] MEDS: amLODIPine 5 MG TABLET PO SCH (09:08)
[2022-04-27] MEDS: lisinopriL 5 MG TABLET PO SCH (09:08)
[2022-04-27] MEDS: FLUoxetine HCl 10 MG CAPSULE PO SCH (09:08)
== END 2022-04-27 13:22 | disposition home or self-care (01) ==
LOC: 2NENU 14:11 → EMEROOARM 14:11 → SUATTDRO 04-25 00:15 → 2NENU 04-25 01:12
PROVIDERS: ADMIT Student in an Organized Health Care Education/Training Program; ATTEND Student in an Organized Health Care Education/Training Program